=== PATIENT | male | born 1975 | race Caucasian/White ===

== ENCOUNTER 2021-03-20 13:15 | Observation (INO) | payer MEDICARE, SELFPAY ==
[2021-03-20 13:46] VITALS: BMI 44.8
--- NOTE | 2021-03-20 14:04 | USCV_ITS ---
Martita Quiroz Age: 45 Gender: M : 1975 Exam Date: 03/20/2021 14:52 Ordering Phys: Marilynn More MD Technologist: Sirena Yan [place] [facility] [place]: Chest pressure BP: 127 / 68 HR: 72 Rhythm: Sinus Technical Quality: Suboptimal MEASUREMENTS (Male / Female) Normal Values 2D ECHO LV Diastolic Diameter PLAX 3.5 cm 4.2 - 5.9 / 3.9 - 5.3 cm LV Systolic Diameter PLAX 2.6 cm LV Chamber Size 4.8 cm IVS Diastolic Thickness 1.4 cm 0.6 - 1.0 / 0.6 - 0.9 cm IVS Systolic Thickness 1.5 cm LVPW Diastolic Thickness 1.4 cm 0.6 - 1.0 / 0.6 - 0.9 cm LVPW Systolic Thickness 1.6 cm RV Chamber Size 2.8 cm LVOT Diameter 2.0 cm LV Ejection Fraction 2D Teich 50.6 % LV Ejection Fraction MOD 2C 58.7 % LV Ejection Fraction 2C AL 59.9 % LA Diameter 3.5 cm LA Width 3.6 cm LA Height 6.3 cm RA Width 2.6 cm RA Height 5.0 cm Aorta at Sinotubular Diameter 2.3 cm M-MODE LV Diastolic Diameter MM 4.5 cm 4.2 - 5.9 / 3.9 - 5.3 cm LV Systolic Diameter MM 2.7 cm LV Ejection Fraction MM Teich 71.5 % IVS Diastolic Thickness MM 1.6 cm 0.6 - 1.0 / 0.6 - 0.9 cm IVS Systolic Thickness MM 1.9 cm LVPW Diastolic Thickness MM 1.4 cm 0.6 - 1.0 / 0.6 - 0.9 cm LVPW Systolic Thickness MM 1.9 cm RV Diastolic Diameter MM 1.1 cm Aortic Annulus Diameter 3.6 cm LA Ao Ratio MM 1.1 MV E Point Septal Separation 0.3 cm DOPPLER AV Peak Velocity 168.0 cm/s LVOT Peak Velocity 122.0 cm/s AV Area Cont Eq vti 2.7 cm squared AV Area Cont Eq pk 2.3 cm squared MV Area PHT 5.0 cm squared Mitral E to A Ratio 1.3 MV E' Velocity 49.0 cm/s Mitral E to MV E' Ratio 8.6 Mitral E to LV E' Lateral Ratio 8.5 Mitral E to LV E' Septal Ratio 8.7 TV Peak E Velocity 54.0 cm/s Right Atrial Pressure 3.0 mmHg PV Peak Velocity 102.0 cm/s RV Acceleration Time 0.1 s RV Ejection Time 0.3 s RV AcT/ET 0.5 FINDINGS Left Ventricle Normal left ventricular size and systolic function, EF 68 %. No regional wall motion abnormalities. Mild left ventricular hypertrophy. Right Ventricle The right ventricle is normal in size and function. Right Atrium Possibly of normal size Left Atrium Appears to be upper limit of normal size Mitral Valve No gross abnormalities noted Aortic Valve The aortic leaflets could not be visualized well Tricuspid Valve Tricuspid valve not well visualized. Pulmonic Valve Pulmonic valve not well visualized. Pericardium Normal pericardium without effusion. Aorta Normal ascending aorta dimension. CONCLUSIONS Normal left ventricular size and systolic function, EF 68 %. Mild left ventricular hypertrophy. Segmental wall motion analysis difficult. No gross wall motion normalities Possibly normal cardiac chamber sizes. No significant stenotic or regurgitant lesions. There is no pericardial effusion. There are no intracardiac masses. No previous study is available for comparison. Dr Karo Newton MD FACC (Electronically Signed) Final Date: 20 March 2021 16:35 S
--- NOTE | 2021-03-20 14:06 | ECG_ITS ---
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 Measurements Intervals [place] Rate: 69 P: 55 [place]: 165 QRS: 55 QRSD: 91 T: 38 QT: 369 QTc: 397 Interpretive Statements SINUS RHYTHM No previous ECG available for comparison Electronically Signed On 03-20-2021 18:06:09 CDT by Karo Newton M.D. [id number]
--- NOTE | 2021-03-20 14:41 | P.HP_ITS ---
Providers/Chief Complaint Admitting Physician: Marilynn More Chief Complaint: CHEST PAIN History of Present Illness 45-year-old male with a past medical history significant for hypertension, dyslipidemia, infections with MDRO, tobacco abuse, obstructive sleep apnea, morbid obesity, coronary artery disease is presented [facility] on 03/19 with episode of chest heaviness. 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 During this time he stated he felt heat exhaustion. Did not maintain adequate hydration. Initially noted nausea and episode of non-bloody emesis which was followed by chest heaviness. during this time he went to lay on grass which he has had allergy to and broke out in to a allergic rash. Denies shortness of breath. No airway compromise. Stated he went to the emergency room for hydration. Initial laboratory workup on arrival showed a WBC of 14.1, hemoglobin of 17, hematocrit 52.4 and a platelet count of 374. Sodium 138, potassium 4.1, chloride 101, bica rb 18, BUN 17 and creatinine of 1.44. Influenza A/B and COVID-19 were negative. ETOH level was negative. Lactic acid was elevated at 4.8. No repeat lactic acid was performed. Urinary drug screen was negative. UA was also negative. Urine creatinine of 322. High sensitivity Troponin T showed 6->23(120min) and 13 at 6hr. He stated after initial IVF bolus his chest pain had resolved. He did receive solu-medrol 125 mg IV x 1, Benadryl 50 mg IV x 1, Zofran 4 mg IV x 1. Today on arrival patient stated he was feeling back to baseline. Patient did have a CTA of chest abdomen pelvis which showed ascending thoracic aortic aneurysm measuring 4.5 cm and liquid stool suggestive of possible enterit is. Review of Systems General: Reports: 10 or more systems reviewed and unremarkable except in HPI and below Medications/Allergies Home Medications Medication Instructions Recorded Confirmed Last Taken Type aspirin [Enteric Coated Aspirin] 81 mg PO DAILY 03/20/21 03/20/21 03/19/21 History atorvastatin 40 mg PO DAILY 03/20/21 03/20/21 03/19/21 History bumetanide 1 mg PO DAILY PRN 03/20/21 03/20/21 03/19/21 History carvedilol [Coreg] 12.5 mg PO BID 03/20/21 03/20/21 03/19/21 History clopidogrel [Plavix] 75 mg PO DAILY 03/20/21 03/20/21 03/19/21 History famotidine 80 mg PO DAILY 03/20/21 03/20/21 03/19/21 History lisinopril 5 mg PO DAILY 03/20/21 03/20/21 03/19/21 History Allergies Allergy/AdvReac Type Severity Reaction Status Date / Time No Known Allergies Allergy Verified 03/20/21 14:55 PFSH Acute PFSH: Medical History (Updated 03/20/21 @ 17:00 by Marilynn More MD) CAD (coronary artery disease) Surgical History (Updated 03/20/21 @ 16:55 by Marilynn More MD) History of heart artery stent Social History (Updated 03/20/21 @ 16:56 by Marilynn More MD) Smoking and tobacco status: current some day smoker Alcohol intake: never Substance/Drug Use: never Vitals/I&O/Wt Weight last 48 hrs Weight 158.304 kg Physical Exam Narrative: EXAM NARRATIVE: General - alert awake oriented x 3, NAD HEENT : Grossly unremarkable CVS: NSR Chest: Non-labored respiration Abd; Non-distended Ext : No edema Data : 03/20/21 14:34 03/20/21 14:34 A&P Assessment and plan (1) Atypical chest pain: Troponin trend not consistent with acs Chest pain resolved Repeat trop Monitor on telemetry ECHO in am Status: Acute (2) Acute renal failure: Creatinine 1.4 Repeat CMP now Monitor u/o holding bumex and lisinopril Status: Acute (3) Lactic acidosis: 4.8 on 03/19 Repeat today Status: Acute (4) Hypertension: Status: Acute (5) Hyperlipidemia: Status: Acute (6) Coronary artery disease: Status: Acute Additional A&P Information DVT ppx - SCDS, Heparin Attestations Medical Necessity Statement*: will require less than 2 midnight stay in hospital for eval and treatment Time Spent in Patient Care: Greater than 35 minutes (>than 50% of time sp ent in counselling and/or direct pt care on unit) . Coding Level of Care Code Acute Combination Machine Tool Setter for Chg Fwd Diagnoses Atypical chest pain R07.89 Acute renal failure N17.9 Lactic acidosis E87.2 Hypertension I10 Hyperlipidemia E78.5 Coronary artery disease I25.10
[2021-03-20 15:11] LABS: Basophils % 0.2 %; Hematocrit 42.2 % (42.0-52.0); Hemoglobin 14.3 g/dL (11.7-16.6); Lymphocytes # 2.7 10^3/uL (0.8-4.8); Lymphocytes % 12.2 %; Mean Corpuscular HGB Conc 33.9 g/dL (30.0-36.0); Mean Corpuscular Hemoglobin 30.6 pg (28.0-34.0); Mean Corpuscular Volume 90.4 fl (80-94); Mean Platelet Volume 11.8 fL (7.4-10.4); Monocytes # 1.1 10^3/uL (0.2-0.9); Monocytes % 5.2 %; Neutrophils # 18.03 10^3/uL (1.8-7.7); Neutrophils % 81.8 %; Nucleated Red Blood Cells % 0 %; Platelet Count 289 10^3/cmm (130-400); Red Blood Count 4.67 10^6/uL (4.1-5.3); White Blood Count 22.1 10^3/uL (4.0-10.0)
[2021-03-20] MEDS: enoxaparin 40 mg/0.4 mL Syringe SUBCUT (15:31)
[2021-03-20 15:35] LABS: Troponin(5th) Baseline 9 ng/L (0-15)
[2021-03-20 15:36] LABS: Lactic Sepsis W/Reflex 1.3 mmol/L (0.5-2.2)
[2021-03-20 15:46] LABS: NT Pro B Type Natriuretic Pept 253 pg/mL (0-125); Procalcitonin 0.76 ng/mL (0-0.5)
[2021-03-20 15:56] LABS: Alanine Aminotransferase 23 U/L (0-41); Albumin Level 3.7 g/dL (3.5-5.2); Alkaline Phosphatase 51 IU/L (40-130); Anion Gap 18.4 (5-19); Aspartate Amino Transferase 18 U/L (0-40); Blood Urea Nitrogen 14 mg/dL (6-20); Calcium 8.8 mg/dL (8.5-10.5); Carbon Dioxide 21 mmol/L (22-29); Chloride 105 mmol/L (98-107); Globulin 2.5 g/dL (1.3-4.6); Glomerular Filtration Rate 121.4 mL/min (90-130); Glucose 116 mg/dL (65-115); Osmolality Calculated 291 mOsm/kg (285-295); Potassium 4.4 mmol/L (3.5-5.1); Sodium 140 mmol/L (136-145); Total Bilirubin 0.5 mg/dL (0.15-1.2); Total Protein 6.2 g/dL (6.6-8.7)
--- NOTE | 2021-03-20 16:06 | ECG_ITS ---
[facility] Test Date: 2021-03-20 Pat Name: Martita Quiroz Department: Room: 112 Gender: Male Macaroni Maker: : 1975 Requested By: Marilynn More Order Number: [id number] Jose MD: Karo Newton M.D. Measurements Intervals [place] Rate: 88 P: 51 [place]: 168 QRS: 64 QRSD: 106 T: 26 QT: 328 QTc: 398 Interpretive Statements SINUS RHYTHM Compared to ECG 03/20/2021 14:43:38 No significant changes Electronically Signed On 03-20-2021 18:17:21 CDT by Karo Newton M.D. [id number]
[2021-03-20 17:17] LABS: Troponin 5 2HR 9.73 ng/L (0-15); Troponin 5 2HR Delta 0.73 ABS# (0-10)
[2021-03-20] MEDS: ciprofloxacin 400 MG/200 ML PREMIX 200 MG IV (18:00)
[2021-03-20 18:38] VITALS: BP 153/78; PULSE 100; RESP 21; TEMP 36.4; O2SAT 96
[2021-03-20] MEDS: metroNIDAZOLE IV 500 MG/100 ML PREMIX 100 MG IV (19:25)
[2021-03-20 20:00] VITALS: BP 121/81; PULSE 87; RESP 19; TEMP 36.8; O2SAT 97
--- NOTE | 2021-03-20 20:06 | ECG_ITS ---
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
--- NOTE | 2021-03-20 20:21 | PC.NURSE ---
Shift Note [facility] [place] [facility] due to chest discomfort and abnormalitieson his ct and trop. Frequent safety and comfort rounds continue. Orders and/or nursing care completed as indicated. Patient monitored for response to intervention and treatment(s). Education provided includes Echocardiogram test as ordered, antibiotics as ordered. Patient and/or health and safety representative verbalizes understanding. Pt stated he used cpap at night but he refused to use the hospital machine and mask when offered. Will continue to monitor.
[2021-03-20 22:00] VITALS: PULSE 82
[2021-03-20 23:32] VITALS: BP 103/53; PULSE 68; RESP 95; TEMP 36.6; O2SAT 95
[2021-03-21] MEDS: metroNIDAZOLE IV 500 MG/100 ML PREMIX 100 MG IV (02:57)
[2021-03-21 04:00] VITALS: BP 109/87; PULSE 60; RESP 14; TEMP 36.6; O2SAT 96
[2021-03-21 04:16] VITALS: PULSE 64
[2021-03-21 04:19] LABS: Basophils # 0.1 10^3/uL (0.0-0.1); Basophils % 0.4 %; Eosinophils # 0.2 10^3/uL (0.0-0.8); Eosinophils % 1.5 %; Hematocrit 40.9 % (42.0-52.0); Hemoglobin 13.4 g/dL (11.7-16.6); Lymphocytes # 4.5 10^3/uL (0.8-4.8); Lymphocytes % 27.7 %; Mean Corpuscular HGB Conc 32.8 g/dL (30.0-36.0); Mean Corpuscular Hemoglobin 30.3 pg (28.0-34.0); Mean Corpuscular Volume 92.5 fl (80-94); Mean Platelet Volume 11.5 fL (7.4-10.4); Monocytes # 1.3 10^3/uL (0.2-0.9); Monocytes % 7.9 %; Neutrophils # 10.07 10^3/uL (1.8-7.7); Neutrophils % 62.1 %; Nucleated Red Blood Cells % 0 %; Platelet Count 244 10^3/cmm (130-400); Red Blood Count 4.42 10^6/uL (4.1-5.3); Red Cell Distribution Width 13.4 % (12.1-15.1); White Blood Count 16.2 10^3/uL (4.0-10.0)
[2021-03-21 04:43] LABS: Procalcitonin 0.64 ng/mL (0-0.5)
[2021-03-21 04:46] LABS: Alanine Aminotransferase 22 U/L (0-41); Albumin Level 3.3 g/dL (3.5-5.2); Alkaline Phosphatase 46 IU/L (40-130); Aspartate Amino Transferase 20 U/L (0-40); Blood Urea Nitrogen 19 mg/dL (6-20); Calcium 8.2 mg/dL (8.5-10.5); Carbon Dioxide 22 mmol/L (22-29); Chloride 108 mmol/L (98-107); Globulin 2.8 g/dL (1.3-4.6); Glomerular Filtration Rate 121.4 mL/min (90-130); Glucose 121 mg/dL (65-115); Magnesium 2.1 mg/dL (1.7-2.3); Osmolality Calculated 292 mOsm/kg (285-295); Sodium 139 mmol/L (136-145); Total Bilirubin 0.3 mg/dL (0.15-1.2); Total Protein 6.1 g/dL (6.6-8.7)
[2021-03-21 04:57] LABS: Slide Review Slide Review Perform
[2021-03-21 07:30] VITALS: BP 146/83; PULSE 69; RESP 14; TEMP 36.4; O2SAT 96
--- NOTE | 2021-03-21 07:39 | PC.NURSE ---
call received from patient whom stated she slept inn her car over night asking for permission to come in early pre visiting hours Dr bocanegra notified of event and fgave permission for patients to come in at this time
--- NOTE | 2021-03-21 08:11 | PC.NURSE ---
spoke with Dr bocanegra about contininuing IV abx at this time Dr bocanegra with instructions to change route of Flagyl from IV to 500mg PO TID
[2021-03-21] MEDS: pantoprazole DR 40 mg Tablet PO (08:14)
[2021-03-21] MEDS: clopidogrel 75 mg Tablet PO (08:15)
[2021-03-21] MEDS: aspirin 81 mg EC Tablet PO (08:15)
[2021-03-21] MEDS: carvedilol 6.25 mg Tablet PO (08:15)
[2021-03-21] MEDS: atorvastatin 40 mg Tablet PO (08:15)
[2021-03-21] MEDS: metroNIDAZOLE 500 MG Tablet PO (08:16)
[2021-03-21] MEDS: ciprofloxacin 500 mg Tablet PO (08:17)
--- NOTE | 2021-03-21 08:24 | P.DS_ITS ---
Discharge Providers Date of Admission: 03/20/21 13:15 Date of Discharge: March 21, 2021 Attending Provider at Admission: Marilynn More Attending Provider at Discharge: Sherman Trammell MD Diagnoses at Discharge Discharge Diagnosis (1) Atypical chest pain: Status: Acute (2) Acute renal failure: Status: Acute (3) Lactic acidosis: Status: Acute (4) Hypertension: Status: Acute (5) Hyperlipidemia: Status: Acute (6) Coronary artery disease: Status: Acute Reason for Visit Reason for Visit: CHEST PAIN Hospital Course Hospital Course Martita is a 45-year-old male who presented to the hospital as a transfer from [facility] with chest heaviness, and 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 Initial lab work-up demonstrated an elevated white blood cell count, influenza a and B and rapid Covid were negative. Lactic acid was elevated at 4.8. Initial troponin was 6, then 23, then 13 at 6 hours. He reports no chest heaviness as soon as he mated to the emergency department and got hydrated. He was found to have a thoracic aortic aneurysm measuring 4.5 cm, and concerns of enteritis secondary to liquid stool noted on his CT. While at the hospital here he had no recurrence of chest discomfort. He received IV antibiotics for enteritis. White blood cell count had decreased to 16. Troponin here was negligible with no significant delta. Procalcitonin here was slightly elevated. Echocardiogram demonstrated preserved EF, mild left ventricular hypertrophy, no obvious gross wall motion abnormalities.Patient wished to go home. He reported he would follow-up with his primary care provider regarding possible nuclear stress test and follow-up of his aneurysm. I believe this was reasonable and discharge the patient home.He will finish up brief course of Cipro and Flagyl for possible enteritis. Carvedilol was decreased secondary to mild bradycardia noted while in the hospital. Physical Exam Narrative: EXAM NARRATIVE: General exam no apparent distress Neck is supple Cardiovascular regular rate and rhythm without murmur Lungs clear Abdomen is soft Extremities no cyanosis clubbing or edema Discharge Data Data Completed and Pending: Completed Studies During Hospitalization Category Date Time Status CV. echo complete * [id number] Routine Ultrasound 03/20/21 14:04 Completed Labs from last 24 hours 03/21/21 03/21/21 03/21/21 04:10 04:10 04:10 WBC 16.2 H RBC 4.42 Hgb 13.4 Hct 40.9 L MCV 92.5 MCH 30.3 MCHC 32.8 RDW 13.4 Plt Count 244 MPV 11.5 H Neut % (Auto) 62.1 Lymph % (Auto) 27.7 [place] % (Auto) 7.9 Eos % (Auto) 1.5 Baso % (Auto) 0.4 Neut # (Auto) 10.07 H Lymph # (Auto) 4.5 [place] # (Auto) 1.3 H Eos # (Auto) 0.2 Baso # (Auto) 0.1 Nucleated RBC % (a uto) 0 Nucleated RBCs # 0.0 Sodium 139 Potassium 4.0 Chloride 108 H Carbon Dioxide 22 Anion Gap 13.0 BUN 19 Creatinine 0.7 GFR Calculation 121.4 Glucose 121 H Calculated Osmolal ity 292 Lactic Acid Calcium 8.2 L Magnesium 2.1 Total Bilirubin 0.3 AST 20 ALT 22 Alkaline Phosphata se 46 Troponin T Baselin e Troponin T 120 Min [place] Delta Troponin T NT-Pro-B Natriuret Pep Total Protein 6.1 L Albumin 3.3 L Globulin 2.8 Procalcitonin 0.64 H 03/20/21 03/20/21 03/20/21 16:42 14:34 14:34 WBC RBC Hgb Hct MCV MCH MCHC RDW Plt Count MPV Neut % (Auto) Lymph % (Auto) [place] % (Auto) Eos % (Auto) Baso % (Auto) Neut # (Auto) Lymph # (Auto) [place] # (Auto) Eos # (Auto) Baso # (Auto) Nucleated RBC % (a uto) Nucleated RBCs # Sodium Potassium Chloride Carbon Dioxide Anion Gap BUN Creatinine GFR Calculation Glucose Calculated Osmolal ity Lactic Acid 1.3 Calcium Magnesium Total Bilirubin AST ALT Alkaline Phosphata se Troponin T Baselin e 9 Troponin T 120 Min [place] 9.73 Delta Troponin T 0.73 NT-Pro-B Natriuret Pep Total Protein Albumin Globulin Procalcitonin 03/20/21 03/20/21 14:34 14:34 WBC 22.1 H RBC 4.67 Hgb 14.3 Hct 42.2 MCV 90.4 MCH 30.6 MCHC 33.9 RDW 13.0 Plt Count 289 MPV 11.8 H Neut % (Auto) 81.8 Lymph % (Auto) 12.2 [place] % (Auto) 5.2 Eos % (Auto) 0.0 Baso % (Auto) 0.2 Neut # (Auto) 18.03 H Lymph # (Auto) 2.7 [place] # (Auto) 1.1 H Eos # (Auto) 0.0 Baso # (Auto) 0.0 Nucleated RBC % (a uto) 0 Nucleated RBCs # 0.0 Sodium 140 Potassium 4.4 Chloride 105 Carbon Dioxide 21 L Anion Gap 18.4 BUN 14 Creatinine 0.7 GFR Calculation 121.4 Glucose 116 H Calculated Osmolal ity 291 Lactic Acid Calcium 8.8 Magnesium Total Bilirubin 0.5 AST 18 ALT 23 Alkaline Phosphata se 51 Troponin T Baselin e Troponin T 120 Min [place] Delta Troponin T NT-Pro-B Natriuret Pep 253 H Total Protein 6.2 L Albumin 3.7 Globulin 2.5 Procalcitonin 0.76 H Vitals: Last Vital Signs Temp 97.6 F 03/21/21 07:30 Pulse 69 03/21/21 07:30 Resp 14 03/21/21 07:30 BP 146/83 03/21/21 07:30 Pulse Ox 96 03/21/21 07:30 Discharge Plan Discharge Patient Disposition: Home Condition: Stable Prescriptions: New carvedilol 6.25 mg Tablet 6.25 mg PO BID@0900,2100 Qty: 60 RF: 0 metronidazole 500 mg Tablet 500 mg PO TID Qty: 12 RF: 0 ciprofloxacin HCl 500 mg Tablet 500 mg PO BID@0900,2100 Qty: 8 RF: 0 Continued atorvastatin 40 mg Tablet 40 mg PO DAILY RF: 0 lisinopril 5 mg Tablet 5 mg PO DAILY RF: 0 Plavix 75 mg Tablet 75 mg PO DAILY RF: 0 Enteric Coated Aspirin 81 mg Tablet,Delayed Release (Dr/Ec) 81 mg PO DAILY RF: 0 famotidine 40 mg Tablet 80 mg PO DAILY RF: 0 bumetanide 1 mg Tablet 1 mg PO DAILY PRN (Reason: Edema) RF: 0 Discontinued carvedilol [Coreg] 12.5 mg Tablet 12.5 mg PO BID RF: 0 Discharge Orders: Discharge Order (Routine); Ordered 03/21/21 Ordered By: Sherman Trammell Referrals: Family Practice [Provider Group] (When you get home, please Follow-up with your primary care provider, Marcial Pagan in 2 to 5 days. Thank you) Discharge Diet: Cardiac Discharge Activity: Limit activity as instructed Patient Instructions: Ciprofloxacin (By mouth), Metronidazole (By mouth), Carvedilol (By mouth), Opioid Safety Activity Restrictions/Additional Instructions: Follow-up with primary care provider Marcial Pagan in 2 to 5 days. Consider nuclear stress testing. Will need follow-up with cardiology regarding a sending aorta dilation of 4.5 cm. Limit your activity to no heavy exertion until follow-up with primary care provider. Discharge Attestations Time Spent in Discharge Care*: greater than 30 min Quality Metrics Clinical Quality Measures During this hospital stay, did patient experience: None Coding Level of Care Code Acute g FW DC note Diagnoses Atypical chest pain R07.89 Acute renal failure N17.9 Lactic acidosis E87.2 Hypertension I10 Hyperlipidemia E78.5 Coronary artery disease I25.10
--- NOTE | 2021-03-21 08:52 | PC.NURSE ---
Discharge Note Patient discharged to Home via private vehicle accompanied by spouse. Discharge instructions reviewed with patient and/or inside sales account representative. Mobile pharmacy medications and/or prescriptions provided. Belongings/home medications returned.
--- NOTE | 2021-03-21 09:21 | PC.CHAP ---
Pastoral Care Encounter/Spiritual Assessment Type of Contact [] Declined business office specialist visit [] Patient/Family/Request visit [] Outpatient visit [] Follow-up visit [] Physician referral [] Code/Alert [] Routine visit [] Staff referral [] Actively dying [] Patient sleeping [] Family support [] [] Out of room [] Palliative care [] [] Receiving care in room [] Pre-surgical visit [] Trauma [] Long length of stay [] ICU visit [x] Other: discharged Relational/Emotional Strength [] Patient feels connected with others/family/visitors/staff [] Distress [] Loneliness/isolation [] Abandonment Spirituality of Patient [] Person of Barb [] Attends Christian of their Barb [] Believes in Prayer [] Reads Bible or Jew materials [] There are Spiritual issues to be addressed Relocation Counselor Interventions [] Prayer [] Active listening [] Non-anxious presence [] Spiritual/emotional support [] Crisis/trauma care [] Spiritual counseling [] Bereavement support [] Provided bereavement packet [] Provided Bible/devotional materials [] Provided toy/stuffed animal, coloring book to patient or family member [] Provided Communion [] Anointing/[place] [] Salvation [] Completed spiritual assessment [] Other: Impact on Illness or Injury [] Angry [] Fearful [] Anxious [] Often cries [] Exhaustion [] Unable to work [] Unable to attend cheondoism [] Unable to walk/stand [] Unable to read [] Unable to drive [] Unable to eat/drink [] Unable to sleep [] Unable to be with family [] Patient intubated [] Other: Summary Time spent with patient
[2021-03-21 09:53] VITALS: BP 146/83; PULSE 69; RESP 14; TEMP 36.4; O2SAT 96
--- NOTE | 2021-03-21 14:38 | PC.RESP ---
SMOKING CESSATION INFORMATION SENT TO PATIENT.
--- NOTE | 2021-03-22 15:05 | PC.SOCIAL ---
discharge follow call made, spoke with patients . she reports pt is feeling much better. they are picking up medications today, [facility] didn't have them ready yesterday. patient has follow up appointment with pcp tomorrow. reports he needs to follow up with cardiology in [place], Dr. Diehl. Knife Machine Operator will fax discharge summary,labs,etc to the cardiology office.
== END 2021-03-21 09:00 | disposition home or self-care (01) ==
PROVIDERS: Admitting Provider Hospitalist; Visit Provider Internal Medicine
DX: R07.89 Other chest pain (principal); N17.9 Acute kidney failure, unspecified; E87.2 Acidosis; I10 Essential (primary) hypertension; E78.5 Hyperlipidemia, unspecified; I25.10 Atherosclerotic heart disease of native coronary artery without angina pectoris; F17.210 Nicotine dependence, cigarettes, uncomplicated; G47.33 Obstructive sleep apnea (adult) (pediatric); E66.01 Morbid (severe) obesity due to excess calories; Z68.41 Body mass index [BMI] 40.0-44.9, adult; Z95.5 Presence of coronary angioplasty implant and graft
CPT/HCPCS: 36415; 80053; 83605; 83735; 83880; 84145; 84484; 85025; 93005; 93306; 96372; G0378; G0379; J0744; J1650; S0030